=== PATIENT | female | born 1960 | race Caucasian/White ===

== ENCOUNTER 2022-05-27 18:06 | Inpatient (IN) | payer MEDICARE, MEDICAID ==
[2022-05-27] MEDS ORDERED: Ondansetron PF 4 MG/2 ML Vial IVP PRN (21:13)
[2022-05-27 21:42] LABS: #Eosinphils 0.5 thou/uL (0.0-0.7); #Lymphocytes 0.9 thou/uL (1.20-3.40); #Monocytes 0.4 thou/uL (0.11-0.59); #Neutrophils 5.6 thou/uL (1.40-6.50); %Basophils 0.4 % (0.0-1.0); %Eosinophils 6.4 % (0.0-10.0); %Lymphocytes 11.6 % (21.0-51.0); %Monocytes 4.9 % (0.0-10.0); %Neutrophils 76.6 % (42.0-75.0); Hemoglobin 10.1 g/dL (12.0-16.0); Mean Corpuscular Hemoglobin 27.9 pg (27.0-31.0); Mean Platelet Volume 7.1 fL (7.4-10.4); Platelet Count 199 thou/uL (130-400); RBC Distribution Width 14.9 % (11.5-14.5); Red Blood Cell (RBC) Count 3.62 mill/uL (4.20-5.40); White Blood Cell (WBC) Count 7.3 thou/uL (4.8-10.8)
[2022-05-27 22:01] LABS: Lactic Acid 0.5 mmol/L (0.5-2.2)
[2022-05-27 22:05] LABS: ALT (SGPT) 18 U/L (8-55); AST (SGOT) 20 U/L (5-34); Albumin 4.2 g/dL (3.4-4.8); Alkaline Phosphatase 114 U/L (40-110); Anion Gap 13 mmol/L (10-20); BUN (Urea Nitrogen) 31 mg/dL (9.8-20.1); Bilirubin, Total 0.4 mg/dL (0.2-1.2); Calc. Creatinine Clearance 0 mL/min (70-130); Calcium 9.2 mg/dL (7.8-10.44); Carbon Dioxide 26 mmol/L (23-31); Chloride 105 mmol/L (98-107); Estimated GFR 49; Globulin 3.6 g/dL (2.4-3.5); Glucose 121 mg/dL (80-115); Lipase 26 U/L (8-78); Potassium 4.1 mmol/L (3.5-5.1); Protein, Total 7.8 g/dL (5.8-8.1); Sodium 140 mmol/L (136-145)
[2022-05-27] MEDS: Lactated Ringer's 1,000 ML IV SCH (22:23)
[2022-05-27 22:47] VITALS: BMI 74.1
[2022-05-27] MEDS ORDERED: Acetaminophen 500 MG TAB PO PRN (22:55)
[2022-05-27] MEDS: Morphine 2 MG/ML VIAL SLOW IVP PRN (23:47)
[2022-05-28] MEDS: Morphine 2 MG/ML VIAL SLOW IVP PRN ×2 (05:11→09:05)
[2022-05-28] MEDS: Lactated Ringer's 1,000 ML IV SCH ×3 (05:11→23:40)
[2022-05-28 06:44] LABS: #Eosinphils 0.4 thou/uL (0.0-0.7); #Lymphocytes 0.5 thou/uL (1.20-3.40); #Monocytes 0.4 thou/uL (0.11-0.59); #Neutrophils 4.2 thou/uL (1.40-6.50); %Basophils 0.7 % (0.0-1.0); %Eosinophils 7.2 % (0.0-10.0); %Lymphocytes 8.7 % (21.0-51.0); %Monocytes 7.4 % (0.0-10.0); Hemoglobin 9.4 g/dL (12.0-16.0); Mean Corpuscular Hemoglobin 28.4 pg (27.0-31.0); Mean Corpuscular Volume 91.8 fL (78.0-98.0); Mean Platelet Volume 7.5 fL (7.4-10.4); Platelet Count 168 thou/uL (130-400); Red Blood Cell (RBC) Count 3.31 mill/uL (4.20-5.40); White Blood Cell (WBC) Count 5.5 thou/uL (4.8-10.8)
[2022-05-28 07:02] LABS: ALT (SGPT) 15 U/L (8-55); AST (SGOT) 19 U/L (5-34); Albumin 3.9 g/dL (3.4-4.8); Alkaline Phosphatase 98 U/L (40-110); Anion Gap 10 mmol/L (10-20); BUN (Urea Nitrogen) 28 mg/dL (9.8-20.1); Bilirubin, Total 0.4 mg/dL (0.2-1.2); Calc. Creatinine Clearance 173 mL/min (70-130); Calcium 8.8 mg/dL (7.8-10.44); Carbon Dioxide 29 mmol/L (23-31); Chloride 105 mmol/L (98-107); Estimated GFR 61; Globulin 3.4 g/dL (2.4-3.5); Glucose 116 mg/dL (80-115); Protein, Total 7.3 g/dL (5.8-8.1); Sodium 140 mmol/L (136-145)
[2022-05-28] MEDS: Famotidine/PF 20 mg/2ml Vial SLOW IVP SCH ×2 (08:56→21:14)
[2022-05-28] MEDS ORDERED: Apixaban 2.5 MG TAB PO SCH (09:00)
[2022-05-28] MEDS ORDERED: Non-Formulary Item 1 EACH (Tizanidine Hcl [Tizanidine Hcl] 4 MG Capsule) PO PRN (12:08)
[2022-05-28] MEDS ORDERED: Acetaminophen 500 MG TAB PO PRN (12:09)
[2022-05-28] MEDS ORDERED: Non-Formulary Item 1 EACH (Albuterol Sulfate [Proair Digihaler] 90 MCG Aer.Pw.Bas) IH PRN (12:09)
[2022-05-28] MEDS ORDERED: tiZANidine HCl 4 MG TAB PO PRN (12:41)
[2022-05-28] MEDS ORDERED: Albuterol Sulfate 2.5 mg/3 ml Neb NEB PRN (12:42)
[2022-05-28] MEDS ORDERED: Senokot S 8.6-50 MG TAB PO PRN (13:58)
[2022-05-28] MEDS ORDERED: MD-Gastroview 120 ML BOT ONE (14:22)
[2022-05-28] MEDS: Gabapentin 300 MG CAP PO SCH ×2 (15:46→21:13)
[2022-05-28] MEDS ORDERED: Nystatin Powder 15 GM BOT TOP SCH (21:00)
[2022-05-28] MEDS ORDERED: Senokot S 8.6-50 MG TAB PO SCH (21:00)
[2022-05-28] MEDS ORDERED: Non-Formulary Item 1 EACH (Amitriptyline Hcl [Elavil] 50 MG Tab) PO SCH (21:00)
[2022-05-28] MEDS: Pramipexole Di-HCl 0.25 MG TAB PO SCH (21:13)
[2022-05-28] MEDS: Apixaban 2.5 MG TAB PO SCH (21:14)
[2022-05-28] MEDS: Atorvastatin Calcium 40 MG TAB PO SCH (21:14)
[2022-05-28] MEDS: Amitriptyline HCl 25 MG TAB PO SCH (21:14)
[2022-05-28] MEDS: Nystatin Powder 15 GM BOT TOP SCH (21:15)
[2022-05-29 07:08] LABS: #Eosinphils 0.4 thou/uL (0.0-0.7); #Lymphocytes 0.5 thou/uL (1.20-3.40); #Monocytes 0.4 thou/uL (0.11-0.59); #Neutrophils 3.6 thou/uL (1.40-6.50); %Basophils 0.8 % (0.0-1.0); %Lymphocytes 10.5 % (21.0-51.0); %Monocytes 8.2 % (0.0-10.0); %Neutrophils 71.5 % (42.0-75.0); Hemoglobin 9.5 g/dL (12.0-16.0); Mean Corpuscular HGB CONC 32.9 g/dL (32.0-36.0); Mean Corpuscular Volume 91.2 fL (78.0-98.0); Mean Platelet Volume 7.4 fL (7.4-10.4); Platelet Count 170 thou/uL (130-400); RBC Distribution Width 14.8 % (11.5-14.5); Red Blood Cell (RBC) Count 3.15 mill/uL (4.20-5.40)
[2022-05-29 07:29] LABS: ALT (SGPT) 16 U/L (8-55); AST (SGOT) 19 U/L (5-34); Albumin 3.8 g/dL (3.4-4.8); Alkaline Phosphatase 107 U/L (40-110); Anion Gap 11 mmol/L (10-20); BUN (Urea Nitrogen) 14 mg/dL (9.8-20.1); Bilirubin, Total 0.5 mg/dL (0.2-1.2); Calc. Creatinine Clearance 207 mL/min (70-130); Calcium 8.8 mg/dL (7.8-10.44); Carbon Dioxide 26 mmol/L (23-31); Chloride 108 mmol/L (98-107); Estimated GFR 75; Globulin 3.2 g/dL (2.4-3.5); Glucose 115 mg/dL (80-115); Potassium 3.8 mmol/L (3.5-5.1); Sodium 141 mmol/L (136-145)
[2022-05-29] MEDS: Nystatin Powder 15 GM BOT TOP SCH ×2 (08:35→20:17)
[2022-05-29] MEDS: Penicillin V Potassium 250 MG TAB PO SCH (08:35)
[2022-05-29] MEDS: Apixaban 2.5 MG TAB PO SCH ×2 (08:35→20:14)
[2022-05-29] MEDS: Gabapentin 300 MG CAP PO SCH ×3 (08:35→20:16)
[2022-05-29] MEDS: Pramipexole Di-HCl 0.25 MG TAB PO SCH ×2 (08:36→20:14)
[2022-05-29] MEDS: Lactated Ringer's 1,000 ML IV SCH (08:36)
[2022-05-29] MEDS: Lisinopril 5 MG TAB PO SCH (08:36)
[2022-05-29] MEDS: Furosemide 40 MG TAB PO SCH (08:36)
[2022-05-29] MEDS: Polyethylene Glycol 3350 17 GM Packet PO SCH ×2 (08:36→12:30)
[2022-05-29] MEDS: Famotidine/PF 20 mg/2ml Vial SLOW IVP SCH ×2 (08:36→20:15)
[2022-05-29] MEDS: Atorvastatin Calcium 40 MG TAB PO SCH (20:15)
[2022-05-29] MEDS: Amitriptyline HCl 25 MG TAB PO SCH (20:16)
[2022-05-30] MEDS: Gabapentin 300 MG CAP PO SCH ×2 (08:49→16:06)
[2022-05-30] MEDS: Penicillin V Potassium 250 MG TAB PO SCH (08:49)
[2022-05-30] MEDS: Furosemide 40 MG TAB PO SCH (08:49)
[2022-05-30] MEDS: Polyethylene Glycol 3350 17 GM Packet PO SCH (08:49)
[2022-05-30] MEDS: Apixaban 2.5 MG TAB PO SCH (08:50)
[2022-05-30] MEDS: Pramipexole Di-HCl 0.25 MG TAB PO SCH (08:50)
[2022-05-30] MEDS: Lisinopril 5 MG TAB PO SCH (08:50)
[2022-05-30] MEDS: Famotidine/PF 20 mg/2ml Vial SLOW IVP SCH (08:51)
[2022-05-30] MEDS ORDERED: FLU VACC QS2022-23(6MOS UP)/PF 60 MCG/0.5 ML SYRINGE IM ONE (09:00)
[2022-05-30] MEDS ORDERED: guaiFENesin ER 600 MG TAB PO SCH (09:00)
[2022-05-30] MEDS: Nystatin Powder 15 GM BOT TOP SCH (09:08)
[2022-05-30] MEDS ORDERED: Lisinopril 5 MG TAB PO SCH (09:30)
[2022-05-30 11:05] LABS: Bilirubin Negative (Negative); Blood, Urine 3+ (Negative); Clarity Clear (Clear); Glucose, Urine (Dipstick) Normal (Negative); Ketone, Urine Negative (Negative); Leukocyte 500 Leu/uL (Negative); Nitrite Negative (Negative); Protein, Urine (Dipstick) Negative (Neg-Trace); RBC/HPF Greater than 50 HPF (0-3); Specific Gravity, Urine 1.009 (1.002-1.036); Squamous Epithelial None Seen HPF (0-3); Urobilinogen Normal mg/dL (Less than 2); WBC/HPF 21-50 HPF (0-3); pH, Urine 7.5 (5.0-9.0)
[2022-05-30 11:08] LABS: Bacteria/HPF Rare-Few HPF (None Seen)
[2022-05-30 11:09] LABS: Urine Culture Reflex Yes Yes
[2022-05-30 12:04] VITALS: TEMP 98.1
[2022-05-30 13:29] LABS: SARS-CoV-2 NAA Rapid Test Not Detected (NotDetected)
[2022-05-30 19:49] VITALS: BP 163/78
[2022-05-30] MEDS ORDERED: Ciprofloxacin 500 MG TAB PO SCH (20:00)
[2022-05-31] MEDS ORDERED: Lisinopril 10 MG TAB PO SCH (09:00)
== END 2022-05-30 17:34 | disposition swing bed (61) | DRG 392 ==
LOC: INTOOBSV 18:06 → T4-B 18:06 → OBSVTOIN 05-29 11:41
PROVIDERS: ADMIT Emergency Medicine; ATTEND Emergency Medicine
DX: K59.00 Constipation, unspecified (principal); N17.9 Acute kidney failure, unspecified; K43.6 Other and unspecified ventral hernia with obstruction, without gangrene; N30.00 Acute cystitis without hematuria; Z68.45 Body mass index [BMI] 70 or greater, adult; I25.10 Atherosclerotic heart disease of native coronary artery without angina pectoris; I50.9 Heart failure, unspecified; J44.9 Chronic obstructive pulmonary disease, unspecified; E66.01 Morbid (severe) obesity due to excess calories; F41.9 Anxiety disorder, unspecified; F32.A Depression, unspecified; K21.9 Gastro-esophageal reflux disease without esophagitis; E78.5 Hyperlipidemia, unspecified; G62.9 Polyneuropathy, unspecified; G47.33 Obstructive sleep apnea (adult) (pediatric); D64.9 Anemia, unspecified; G89.4 Chronic pain syndrome; J45.909 Unspecified asthma, uncomplicated; Z20.822 Contact with and (suspected) exposure to COVID-19; Z79.899 Other long term (current) drug therapy; Z79.01 Long term (current) use of anticoagulants; Z79.51 Long term (current) use of inhaled steroids; Z90.49 Acquired absence of other specified parts of digestive tract; Z90.710 Acquired absence of both cervix and uterus
CPT/HCPCS: 36415; 74250; 80053; 81001; 83605; 83690; 85025; 87077; 87086; 87186; 87324; 87449; 96361; 96374; 96375; 96376; 97139; G0378; J2270; J2405; J7120; Q9963; S0028; U0002

== ENCOUNTER 2023-07-21 19:30 | Inpatient (IN) | payer MEDICARE, MEDICAID ==
[2023-07-21] MEDS ORDERED: Ondansetron PF 4 MG/2 ML Vial ONE (19:56)
[2023-07-21] MEDS ORDERED: Acetaminophen 500 MG TAB ONE (19:56)
[2023-07-21 20:15] LABS: #Eosinphils 0.1 thou/uL (0.0-0.7); #Monocytes 0.8 thou/uL (0.11-0.59); %Basophils 0.1 % (0.0-1.0); %Eosinophils 1.1 % (0.0-10.0); %Lymphocytes 4.3 % (21.0-51.0); %Monocytes 8.3 % (0.0-10.0); %Neutrophils 85.2 % (42.0-75.0); Hematocrit 29.9 % (36.0-47.0); Hemoglobin 8.7 g/dL (12.0-16.0); Mean Corpuscular HGB CONC 29.1 g/dL (32.0-36.0); Mean Corpuscular Hemoglobin 24.6 pg (27.0-31.0); Mean Corpuscular Volume 84.5 fl (78.0-98.0); Mean Platelet Volume 8.8 fL (7.4-10.4); Platelet Count 177 10x3/uL (130-400); RBC Distribution Width 16.7 % (11.5-14.5); Red Blood Cell (RBC) Count 3.54 mill/uL (4.20-5.40); White Blood Cell (WBC) Count 9.4 10x3/uL (4.8-10.8)
[2023-07-21 20:27] LABS: INR-International Normal Ratio 1.2; PTT 33.8 sec (22.9-36.1); Prothrombin Time 15.5 sec (12.0-14.7)
[2023-07-21 20:49] LABS: Bacteria/HPF 2+ HPF (None Seen); Bilirubin Negative (Negative); Blood, Urine 2+ (Negative); CAUTI Indications for Culture Dysuria,urgency,freq; Clarity Turbid (Clear); Glucose, Urine (Dipstick) Normal (Negative); Ketone, Urine Negative (Negative); Leukocyte 500 Leu/uL (Negative); Nitrite Negative (Negative); Protein, Urine (Dipstick) 100 mg/dL (Neg-Trace); RBC/HPF 21-50 HPF (0-3); Renal Epithelial 0-3 HPF (None Seen); Specific Gravity, Urine 1.013 (1.002-1.036); Transitional Epithelial 0-3 HPF (None Seen); Urobilinogen Normal mg/dL (Less than 2); WBC/HPF Greater than 50 HPF (0-3); Yeast-Hyphae Rare HPF (None Seen)
[2023-07-21 20:50] LABS: Urine Culture Reflex Yes Yes
[2023-07-21 20:52] LABS: ALT (SGPT) 22 U/L (8-55); AST (SGOT) 19 U/L (5-34); Alkaline Phosphatase 137 U/L (40-110); Anion Gap 14 mmol/L (10-20); BUN (Urea Nitrogen) 30 mg/dL (9.8-20.1); Bilirubin, Total 0.7 mg/dL (0.2-1.2); Calc. Creatinine Clearance 0 mL/min (70-130); Calcium 9.3 mg/dL (7.8-10.44); Carbon Dioxide 25 mmol/L (23-31); Chloride 99 mmol/L (98-107); Estimated GFR 28; Globulin 3.6 g/dL (2.4-3.5); Glucose 205 mg/dL (80-115); Lipase 27 U/L (8-78); Potassium 5.3 mmol/L (3.5-5.1); Protein, Total 7.6 g/dL (5.8-8.1); Sodium 133 mmol/L (136-145)
[2023-07-21 21:11] LABS: SARS-CoV-2 NAA Rapid Test Not Detected (NotDetected)
[2023-07-21] MEDS ORDERED: Sodium Chloride 0.9% 100 ML ONE (21:52)
[2023-07-21] MEDS ORDERED: cefTRIAXone (ROCEPHIN) 2 GM VIAL ONE (21:52)
[2023-07-21] MEDS ORDERED: Ondansetron PF 4 MG/2 ML Vial IVP PRN (23:13)
[2023-07-21] MEDS ORDERED: Acetaminophen 650 MG Suppository PR PRN (23:13)
[2023-07-21] MEDS ORDERED: Ondansetron ODT 4 MG TAB PO PRN (23:13)
[2023-07-21] MEDS ORDERED: Vancomycin (BATCH) 1.5 GM in Premix 1 BAG IVPB SCH (23:30)
[2023-07-21 23:48] VITALS: BMI 66.6
[2023-07-22] MEDS: Cefepime 1 GM in Sodium Chloride 0.9% 100 ML IVPB SCH ×2 (00:24→13:32)
[2023-07-22] MEDS ORDERED: Vancomycin Dose by Levels Sliding Scale (Wt > 99) FS SCH (00:30)
[2023-07-22] MEDS ORDERED: Vancomycin (BATCH) 2 GM in Premix 1 BAG IVPB SCH (01:00)
[2023-07-22] MEDS ORDERED: Ipratropium/Albuterol 3 ML NEB NEB PRN (04:45)
[2023-07-22 05:01] LABS: #Eosinphils 0.1 thou/uL (0.0-0.7); #Monocytes 0.9 thou/uL (0.11-0.59); #Neutrophils 7.8 thou/uL (1.40-6.50); %Basophils 0.2 % (0.0-1.0); %Eosinophils 0.5 % (0.0-10.0); %Monocytes 9.2 % (0.0-10.0); %Neutrophils 83.8 % (42.0-75.0); Hemoglobin 7.9 g/dL (12.0-16.0); Mean Corpuscular HGB CONC 29.3 g/dL (32.0-36.0); Mean Corpuscular Hemoglobin 25.1 pg (27.0-31.0); Mean Corpuscular Volume 85.7 fl (78.0-98.0); Mean Platelet Volume 8.9 fL (7.4-10.4); Platelet Count 166 10x3/uL (130-400); RBC Distribution Width 16.7 % (11.5-14.5); Red Blood Cell (RBC) Count 3.15 mill/uL (4.20-5.40); White Blood Cell (WBC) Count 9.3 10x3/uL (4.8-10.8)
[2023-07-22 05:10] LABS: Hemoglobin A1c 6.4 % (4.0-6.0)
[2023-07-22] MEDS: Sodium Chloride 0.9% 1,000 ML IV SCH ×3 (05:17→20:22)
[2023-07-22 05:30] LABS: Anion Gap 13 mmol/L (10-20); BUN (Urea Nitrogen) 28 mg/dL (9.8-20.1); Calc. Creatinine Clearance 94 mL/min (70-130); Calcium 8.6 mg/dL (7.8-10.44); Carbon Dioxide 25 mmol/L (23-31); Chloride 100 mmol/L (98-107); Estimated GFR 33; Glucose 179 mg/dL (80-115); Potassium 5.1 mmol/L (3.5-5.1); Sodium 133 mmol/L (136-145)
[2023-07-22] MEDS: Acetaminophen 325 MG TAB PO PRN ×2 (09:58→20:19)
[2023-07-22] MEDS: Folic Acid 1 MG TAB PO SCH (09:58)
[2023-07-22] MEDS ORDERED: Sertraline 100 MG TAB PO SCH (10:30)
[2023-07-22] MEDS ORDERED: diphenhydrAMINE 50 MG/ML VIAL IVP SCH (15:00)
[2023-07-22] MEDS: Gabapentin 100 MG CAP PO SCH ×2 (15:31→20:20)
[2023-07-22] MEDS: Prochlorperazine Maleate 5 MG TAB PO PRN (17:56)
[2023-07-22] MEDS: Amitriptyline HCl 25 MG TAB PO SCH (20:19)
[2023-07-22] MEDS: Apixaban 2.5 MG TAB PO SCH (20:20)
[2023-07-22] MEDS: Pramipexole Di-HCl 0.25 MG TAB PO SCH (20:21)
[2023-07-22] MEDS: diphenhydrAMINE 25 MG CAP PO PRN (20:21)
[2023-07-23 00:26] LABS: Vancomycin, Random 10.8 ug/mL (See Comment)
[2023-07-23] MEDS: Cefepime 1 GM in Sodium Chloride 0.9% 100 ML IVPB SCH (00:36)
[2023-07-23] MEDS ORDERED: Vancomycin 1 GM in Premix 1 BAG IVPB SCH (01:30)
[2023-07-23] MEDS: Prochlorperazine Maleate 5 MG TAB PO PRN ×2 (01:52→23:31)
[2023-07-23] MEDS: Acetaminophen 325 MG TAB PO PRN ×2 (01:52→06:27)
[2023-07-23] MEDS: Sodium Chloride 0.9% 1,000 ML IV SCH (06:18)
[2023-07-23 06:35] LABS: #Eosinphils 0.1 thou/uL (0.0-0.7); #Monocytes 0.5 thou/uL (0.11-0.59); #Neutrophils 4.1 thou/uL (1.40-6.50); %Basophils 0.2 % (0.0-1.0); %Monocytes 10.4 % (0.0-10.0); Hematocrit 25.5 % (36.0-47.0); Hemoglobin 7.2 g/dL (12.0-16.0); Mean Corpuscular HGB CONC 28.2 g/dL (32.0-36.0); Mean Corpuscular Hemoglobin 24.5 pg (27.0-31.0); Mean Corpuscular Volume 86.7 fl (78.0-98.0); Platelet Count 129 10x3/uL (130-400); RBC Distribution Width 16.5 % (11.5-14.5); Red Blood Cell (RBC) Count 2.94 mill/uL (4.20-5.40); White Blood Cell (WBC) Count 5.1 10x3/uL (4.8-10.8)
[2023-07-23 07:00] LABS: Anion Gap 11 mmol/L (10-20); BUN (Urea Nitrogen) 24 mg/dL (9.8-20.1); Calc. Creatinine Clearance 98 mL/min (70-130); Calcium 8.4 mg/dL (7.8-10.44); Carbon Dioxide 25 mmol/L (23-31); Chloride 103 mmol/L (98-107); Estimated GFR 35; Glucose 148 mg/dL (80-115); Potassium 4.5 mmol/L (3.5-5.1); Sodium 134 mmol/L (136-145)
[2023-07-23] MEDS: Ascorbic Acid 500 mg Chewable Tablet PO SCH (07:46)
[2023-07-23] MEDS: Gabapentin 100 MG CAP PO SCH ×3 (07:46→20:18)
[2023-07-23] MEDS: Multivit, Therapeutic 1 TAB PO SCH (07:46)
[2023-07-23] MEDS: Cyanocobalamin (Vitamin B-12) 1,000 MCG TAB PO SCH (07:48)
[2023-07-23] MEDS: Furosemide 40 MG TAB PO SCH (07:48)
[2023-07-23] MEDS: Folic Acid 1 MG TAB PO SCH (07:48)
[2023-07-23] MEDS: Pramipexole Di-HCl 0.25 MG TAB PO SCH ×2 (07:49→20:17)
[2023-07-23] MEDS: Zinc Sulfate 220 MG CAP PO SCH (07:49)
[2023-07-23] MEDS: Sertraline 100 MG TAB PO SCH (07:49)
[2023-07-23] MEDS: Apixaban 2.5 MG TAB PO SCH ×2 (07:50→20:18)
[2023-07-23] MEDS ORDERED: Sertraline 100 MG TAB PO SCH (09:00)
[2023-07-23] MEDS ORDERED: Ferrous Sulfate 325 MG TAB PO SCH (09:15)
[2023-07-23] MEDS: cefTRIAXone\\ROCEPHIN 2 GM in Sodium Chloride 0.9% 100 ML IVPB SCH (13:38)
[2023-07-23] MEDS: Ferrous Sulfate 325 MG TAB PO SCH (16:42)
[2023-07-23] MEDS: Amitriptyline HCl 25 MG TAB PO SCH (20:17)
[2023-07-23] MEDS: Acetaminophen/Codeine 30-300mg Tablet PO PRN (20:20)
[2023-07-23] MEDS: diphenhydrAMINE 25 MG CAP PO PRN (20:20)
[2023-07-24 06:11] LABS: #Eosinphils 0.1 thou/uL (0.0-0.7); #Monocytes 0.7 thou/uL (0.11-0.59); #Neutrophils 4.3 thou/uL (1.40-6.50); %Basophils 0.2 % (0.0-1.0); %Eosinophils 2.1 % (0.0-10.0); %Lymphocytes 8.3 % (21.0-51.0); %Monocytes 12.9 % (0.0-10.0); %Neutrophils 75.6 % (42.0-75.0); Hematocrit 26.5 % (36.0-47.0); Hemoglobin 7.7 g/dL (12.0-16.0); Mean Corpuscular HGB CONC 29.1 g/dL (32.0-36.0); Mean Corpuscular Hemoglobin 25.1 pg (27.0-31.0); Mean Corpuscular Volume 86.3 fl (78.0-98.0); Mean Platelet Volume 9.4 fL (7.4-10.4); Platelet Count 142 10x3/uL (130-400); RBC Distribution Width 16.3 % (11.5-14.5); Red Blood Cell (RBC) Count 3.07 mill/uL (4.20-5.40); White Blood Cell (WBC) Count 5.6 10x3/uL (4.8-10.8)
[2023-07-24 06:31] LABS: Anion Gap 13 mmol/L (10-20); BUN (Urea Nitrogen) 21 mg/dL (9.8-20.1); Calc. Creatinine Clearance 106 mL/min (70-130); Calcium 8.8 mg/dL (7.8-10.44); Carbon Dioxide 24 mmol/L (23-31); Chloride 103 mmol/L (98-107); Estimated GFR 39; Glucose 148 mg/dL (80-115); Potassium 4.5 mmol/L (3.5-5.1); Sodium 135 mmol/L (136-145)
[2023-07-24] MEDS: Cyanocobalamin (Vitamin B-12) 1,000 MCG TAB PO SCH (09:02)
[2023-07-24] MEDS: Gabapentin 100 MG CAP PO SCH ×3 (09:02→20:57)
[2023-07-24] MEDS: Zinc Sulfate 220 MG CAP PO SCH (09:02)
[2023-07-24] MEDS: Pramipexole Di-HCl 0.25 MG TAB PO SCH ×2 (09:02→20:57)
[2023-07-24] MEDS: Sertraline 100 MG TAB PO SCH (09:02)
[2023-07-24] MEDS: Multivit, Therapeutic 1 TAB PO SCH (09:02)
[2023-07-24] MEDS: Ascorbic Acid 500 mg Chewable Tablet PO SCH (09:03)
[2023-07-24] MEDS: Furosemide 40 MG TAB PO SCH (09:03)
[2023-07-24] MEDS: Ferrous Sulfate 325 MG TAB PO SCH ×2 (09:03→15:52)
[2023-07-24] MEDS: Folic Acid 1 MG TAB PO SCH (09:03)
[2023-07-24] MEDS: Apixaban 2.5 MG TAB PO SCH ×2 (13:04→20:58)
[2023-07-24] MEDS: Acetaminophen/Codeine 30-300mg Tablet PO PRN ×2 (13:04→19:12)
[2023-07-24] MEDS: cefTRIAXone\\ROCEPHIN 2 GM in Sodium Chloride 0.9% 100 ML IVPB SCH (13:05)
[2023-07-24] MEDS: Prochlorperazine Maleate 5 MG TAB PO PRN (17:43)
[2023-07-24] MEDS: diphenhydrAMINE 25 MG CAP PO PRN (20:57)
[2023-07-24] MEDS: Amitriptyline HCl 25 MG TAB PO SCH (20:58)
[2023-07-25] MEDS: Prochlorperazine Maleate 5 MG TAB PO PRN ×2 (03:36→19:31)
[2023-07-25 05:41] LABS: #Eosinphils 0.2 thou/uL (0.0-0.7); #Monocytes 0.6 thou/uL (0.11-0.59); #Neutrophils 4.1 thou/uL (1.40-6.50); %Basophils 0.4 % (0.0-1.0); %Eosinophils 2.8 % (0.0-10.0); %Lymphocytes 8.9 % (21.0-51.0); %Monocytes 11.7 % (0.0-10.0); %Neutrophils 75.6 % (42.0-75.0); Hematocrit 25.2 % (36.0-47.0); Hemoglobin 7.2 g/dL (12.0-16.0); Mean Corpuscular HGB CONC 28.6 g/dL (32.0-36.0); Mean Corpuscular Hemoglobin 24.3 pg (27.0-31.0); Mean Corpuscular Volume 85.1 fl (78.0-98.0); Platelet Count 137 10x3/uL (130-400); RBC Distribution Width 16.2 % (11.5-14.5); Red Blood Cell (RBC) Count 2.96 mill/uL (4.20-5.40); White Blood Cell (WBC) Count 5.4 10x3/uL (4.8-10.8)
[2023-07-25 06:12] LABS: Anion Gap 13 mmol/L (10-20); BUN (Urea Nitrogen) 20 mg/dL (9.8-20.1); Calc. Creatinine Clearance 112 mL/min (70-130); Calcium 8.9 mg/dL (7.8-10.44); Carbon Dioxide 27 mmol/L (23-31); Chloride 100 mmol/L (98-107); Estimated GFR 41; Glucose 162 mg/dL (80-115); Potassium 4.5 mmol/L (3.5-5.1); Sodium 135 mmol/L (136-145)
[2023-07-25] MEDS: Cyanocobalamin (Vitamin B-12) 1,000 MCG TAB PO SCH (09:01)
[2023-07-25] MEDS: Furosemide 40 MG TAB PO SCH (09:01)
[2023-07-25] MEDS: Folic Acid 1 MG TAB PO SCH (09:01)
[2023-07-25] MEDS: Zinc Sulfate 220 MG CAP PO SCH (09:01)
[2023-07-25] MEDS: Pramipexole Di-HCl 0.25 MG TAB PO SCH (09:01)
[2023-07-25] MEDS: Sertraline 100 MG TAB PO SCH (09:01)
[2023-07-25] MEDS: Gabapentin 100 MG CAP PO SCH ×2 (09:01→14:25)
[2023-07-25] MEDS: Ascorbic Acid 500 mg Chewable Tablet PO SCH (09:01)
[2023-07-25] MEDS: Apixaban 2.5 MG TAB PO SCH (09:02)
[2023-07-25] MEDS: Ferrous Sulfate 325 MG TAB PO SCH ×2 (09:02→15:59)
[2023-07-25] MEDS: Multivit, Therapeutic 1 TAB PO SCH (09:02)
[2023-07-25] MEDS: Acetaminophen/Codeine 30-300mg Tablet PO PRN (14:26)
[2023-07-25] MEDS: cefTRIAXone\\ROCEPHIN 2 GM in Sodium Chloride 0.9% 100 ML IVPB SCH (14:26)
[2023-07-25 19:36] VITALS: BP 115/70; TEMP 98.4
== END 2023-07-25 20:33 | disposition home health service (06) | DRG 698 ==
LOC: ERS 19:30 → T4-B 21:52
PROVIDERS: ADMIT Family Medicine; ATTEND Family Medicine
PROC: 02HV33Z Insertion of Infusion Device into Superior Vena Cava, Percutaneous Approach (ICD-10-PCS; principal; 2023-07-24)
PROC: B5181ZA Fluoroscopy of Superior Vena Cava using Low Osmolar Contrast, Guidance (ICD-10-PCS; 2023-07-24)
PROC: B548ZZA Ultrasonography of Superior Vena Cava, Guidance (ICD-10-PCS; 2023-07-24)
DX: T83.511A Infection and inflammatory reaction due to indwelling urethral catheter, initial encounter (principal); A41.9 Sepsis, unspecified organism; R65.20 Severe sepsis without septic shock; N17.9 Acute kidney failure, unspecified; E87.1 Hypo-osmolality and hyponatremia; E66.01 Morbid (severe) obesity due to excess calories; N39.0 Urinary tract infection, site not specified; J44.9 Chronic obstructive pulmonary disease, unspecified; I11.0 Hypertensive heart disease with heart failure; I50.9 Heart failure, unspecified; E78.5 Hyperlipidemia, unspecified; E87.5 Hyperkalemia; R53.81 Other malaise; G47.33 Obstructive sleep apnea (adult) (pediatric); F41.9 Anxiety disorder, unspecified; G89.4 Chronic pain syndrome; J45.909 Unspecified asthma, uncomplicated; I10 Essential (primary) hypertension; D50.9 Iron deficiency anemia, unspecified; Z90.5 Acquired absence of kidney; Z99.81 Dependence on supplemental oxygen; Z79.899 Other long term (current) drug therapy; Z79.51 Long term (current) use of inhaled steroids; Z98.890 Other specified postprocedural states; Z11.52 Encounter for screening for COVID-19
CPT/HCPCS: 36415; 36416; 36569; 51702; 71045; 76770; 80048; 80053; 80202; 81001; 83036; 83605; 83690; 83735; 84484; 85025; 85610; 85730; 87040; 87077; 87086; 87149; 87186; 87804; 93005; 94760; 96361; 96365; 96375; 97139; C1751; J0692; J0696; J1200; J2405; J3370; J3370-JW; J3490; J7050; Q0164; U0002

== ENCOUNTER 2023-07-28 15:39 | Inpatient (IN) | payer MEDICARE, MEDICAID ==
[2023-07-28 16:45] LABS: #Eosinphils 0.3 thou/uL (0.0-0.7); #Monocytes 0.5 thou/uL (0.11-0.59); #Neutrophils 6.7 thou/uL (1.40-6.50); %Basophils 0.2 % (0.0-1.0); %Eosinophils 3.8 % (0.0-10.0); %Lymphocytes 11.7 % (21.0-51.0); %Monocytes 5.6 % (0.0-10.0); %Neutrophils 76.6 % (42.0-75.0); Hematocrit 27.4 % (36.0-47.0); Mean Corpuscular HGB CONC 29.2 g/dL (32.0-36.0); Mean Corpuscular Hemoglobin 24.9 pg (27.0-31.0); Mean Corpuscular Volume 85.4 fl (78.0-98.0); Mean Platelet Volume 9.5 fL (7.4-10.4); Platelet Count 251 10x3/uL (130-400); RBC Distribution Width 16.3 % (11.5-14.5); Red Blood Cell (RBC) Count 3.21 mill/uL (4.20-5.40); White Blood Cell (WBC) Count 8.8 10x3/uL (4.8-10.8)
[2023-07-28 17:24] LABS: ALT (SGPT) 25 U/L (8-55); AST (SGOT) 19 U/L (5-34); Albumin 3.7 g/dL (3.4-4.8); Alkaline Phosphatase 180 U/L (40-110); Anion Gap 16 mmol/L (10-20); BUN (Urea Nitrogen) 22 mg/dL (9.8-20.1); Bilirubin, Total 0.2 mg/dL (0.2-1.2); Calc. Creatinine Clearance 0 mL/min (70-130); Calcium 8.8 mg/dL (7.8-10.44); Carbon Dioxide 23 mmol/L (23-31); Chloride 106 mmol/L (98-107); Estimated GFR 37; Globulin 3.6 g/dL (2.4-3.5); Glucose 163 mg/dL (80-115); Potassium 4.1 mmol/L (3.5-5.1); Protein, Total 7.3 g/dL (5.8-8.1); Sodium 141 mmol/L (136-145)
[2023-07-28] MEDS ORDERED: cefTRIAXone (ROCEPHIN) 2 GM VIAL ONE (18:16)
[2023-07-28] MEDS ORDERED: Sodium Chloride 0.9% 100 ML ONE (18:17)
[2023-07-28] MEDS ORDERED: Acetaminophen 650 MG Suppository PR PRN (19:34)
[2023-07-28] MEDS ORDERED: Albuterol 200 PUFF (6.7GM INHALER) INH PRN (19:46)
[2023-07-28] MEDS ORDERED: diphenhydrAMINE 25 MG CAP PO PRN (19:48)
[2023-07-28] MEDS: Pramipexole Di-HCl 0.25 MG TAB PO SCH (23:27)
[2023-07-28] MEDS: Gabapentin 100 MG CAP PO SCH (23:27)
[2023-07-28] MEDS: Amitriptyline HCl 25 MG TAB PO SCH (23:27)
[2023-07-29 00:03] VITALS: BMI 73.3
[2023-07-29] MEDS: Heparin 10,000 UNITS/ 10 ML VIAL SLOW IVP SCH ×2 (03:15→09:54)
[2023-07-29] MEDS: Heparin 25,000 units/D5W 500 ML IV SCH ×3 (03:16→23:10)
[2023-07-29 05:40] LABS: #Eosinphils 0.4 thou/uL (0.0-0.7); #Monocytes 0.6 thou/uL (0.11-0.59); #Neutrophils 6.7 thou/uL (1.40-6.50); %Basophils 0.3 % (0.0-1.0); %Eosinophils 4.3 % (0.0-10.0); %Lymphocytes 14.7 % (21.0-51.0); %Monocytes 6.1 % (0.0-10.0); %Neutrophils 71.1 % (42.0-75.0); Mean Corpuscular HGB CONC 28.6 g/dL (32.0-36.0); Mean Corpuscular Hemoglobin 24.5 pg (27.0-31.0); Mean Corpuscular Volume 85.9 fl (78.0-98.0); Mean Platelet Volume 9.1 fL (7.4-10.4); Platelet Count 264 10x3/uL (130-400); RBC Distribution Width 16.5 % (11.5-14.5); Red Blood Cell (RBC) Count 3.26 mill/uL (4.20-5.40); White Blood Cell (WBC) Count 9.5 10x3/uL (4.8-10.8)
[2023-07-29 06:06] LABS: CellaVision Operator ID lab.abc; Platelet Adequacy Comment Platelets Normal; Polychromasia SLIGHT = 2-3 cells HPF (0-2); Smudge Cells 16.8 %
[2023-07-29 06:08] LABS: ALT (SGPT) 23 U/L (8-55); AST (SGOT) 17 U/L (5-34); Albumin 3.5 g/dL (3.4-4.8); Alkaline Phosphatase 166 U/L (40-110); Anion Gap 14 mmol/L (10-20); BUN (Urea Nitrogen) 21 mg/dL (9.8-20.1); Bilirubin, Total 0.2 mg/dL (0.2-1.2); Calc. Creatinine Clearance 128 mL/min (70-130); Calcium 8.9 mg/dL (7.8-10.44); Carbon Dioxide 25 mmol/L (23-31); Chloride 103 mmol/L (98-107); Estimated GFR 40; Globulin 3.8 g/dL (2.4-3.5); Glucose 148 mg/dL (80-115); Potassium 4.4 mmol/L (3.5-5.1); Protein, Total 7.3 g/dL (5.8-8.1); Sodium 138 mmol/L (136-145)
[2023-07-29] MEDS: Zinc Sulfate 220 MG CAP PO SCH (08:20)
[2023-07-29] MEDS: Multivit, Therapeutic 1 TAB PO SCH (08:21)
[2023-07-29] MEDS: Gabapentin 100 MG CAP PO SCH ×3 (08:21→19:38)
[2023-07-29] MEDS: Folic Acid 1 MG TAB PO SCH (08:21)
[2023-07-29] MEDS: Sertraline 100 MG TAB PO SCH (08:21)
[2023-07-29] MEDS: Ascorbic Acid 500 mg Chewable Tablet PO SCH (08:21)
[2023-07-29] MEDS: Ferrous Sulfate 325 MG TAB PO SCH ×2 (08:21→16:43)
[2023-07-29] MEDS: Furosemide 40 MG TAB PO SCH (08:21)
[2023-07-29] MEDS: Cyanocobalamin (Vitamin B-12) 1,000 MCG TAB PO SCH (08:22)
[2023-07-29] MEDS: Pramipexole Di-HCl 0.25 MG TAB PO SCH ×2 (08:22→19:38)
[2023-07-29] MEDS: Acetaminophen 325 MG TAB PO PRN ×4 (08:26→23:14)
[2023-07-29] MEDS ORDERED: Ciprofloxacin 500 MG TAB PO SCH (13:15)
[2023-07-29] MEDS ORDERED: cefTRIAXone (ROCEPHIN) 2 GM VIAL IVPB SCH (14:00)
[2023-07-29] MEDS: Ciprofloxacin 500 MG TAB PO SCH (19:38)
[2023-07-29] MEDS: Amitriptyline HCl 25 MG TAB PO SCH (19:38)
[2023-07-30] MEDS: Ciprofloxacin 500 MG TAB PO SCH (05:38)
[2023-07-30 07:11] LABS: #Eosinphils 0.3 thou/uL (0.0-0.7); #Monocytes 0.4 thou/uL (0.11-0.59); #Neutrophils 5.3 thou/uL (1.40-6.50); %Basophils 0.4 % (0.0-1.0); %Eosinophils 3.8 % (0.0-10.0); %Lymphocytes 11.6 % (21.0-51.0); %Monocytes 5.2 % (0.0-10.0); Hematocrit 30.7 % (36.0-47.0); Hemoglobin 8.7 g/dL (12.0-16.0); Mean Corpuscular HGB CONC 28.3 g/dL (32.0-36.0); Mean Corpuscular Hemoglobin 24.9 pg (27.0-31.0); Mean Corpuscular Volume 87.7 fl (78.0-98.0); Mean Platelet Volume 9.5 fL (7.4-10.4); Platelet Count 269 10x3/uL (130-400); RBC Distribution Width 16.9 % (11.5-14.5); White Blood Cell (WBC) Count 7.1 10x3/uL (4.8-10.8)
[2023-07-30 07:31] LABS: Anion Gap 15 mmol/L (10-20); BUN (Urea Nitrogen) 18 mg/dL (9.8-20.1); Calc. Creatinine Clearance 140 mL/min (70-130); Carbon Dioxide 24 mmol/L (23-31); Chloride 103 mmol/L (98-107); Estimated GFR 45; Glucose 148 mg/dL (80-115); Potassium 4.4 mmol/L (3.5-5.1); Sodium 138 mmol/L (136-145)
[2023-07-30 08:21] LABS: CellaVision Operator ID LAB.GE; Hypochromia SLIGHT = 6-15 cells HPF (0-5); Platelet Adequacy Comment Platelets Normal; Polychromasia SLIGHT = 2-3 cells HPF (0-2)
[2023-07-30] MEDS: Ferrous Sulfate 325 MG TAB PO SCH (08:49)
[2023-07-30] MEDS: Folic Acid 1 MG TAB PO SCH (08:49)
[2023-07-30] MEDS: Ascorbic Acid 500 mg Chewable Tablet PO SCH (08:49)
[2023-07-30] MEDS: Cyanocobalamin (Vitamin B-12) 1,000 MCG TAB PO SCH (08:49)
[2023-07-30] MEDS: Zinc Sulfate 220 MG CAP PO SCH (08:49)
[2023-07-30] MEDS: Pramipexole Di-HCl 0.25 MG TAB PO SCH (08:49)
[2023-07-30] MEDS: Multivit, Therapeutic 1 TAB PO SCH (08:49)
[2023-07-30] MEDS: Furosemide 40 MG TAB PO SCH (08:49)
[2023-07-30] MEDS: Sertraline 100 MG TAB PO SCH (08:49)
[2023-07-30] MEDS: Gabapentin 100 MG CAP PO SCH ×2 (08:50→16:10)
[2023-07-30] MEDS: Heparin 25,000 units/D5W 500 ML IV SCH (08:55)
[2023-07-30] MEDS ORDERED: Apixaban 5 MG TAB PO SCH ×2 (12:00→21:00)
[2023-07-30 12:37] VITALS: BP 149/84; TEMP 97.7
== END 2023-07-30 16:00 | disposition home or self-care (01) | DRG 315 ==
LOC: SUATTDRO 15:39 → ERS 15:39 → SJJU 18:54
PROVIDERS: ADMIT Family Medicine; ATTEND Family Medicine
PROC: 5A09357 Assistance with Respiratory Ventilation, Less than 24 Consecutive Hours, Continuous Positive Airway Pressure (ICD-10-PCS; principal; 2023-07-29)
DX: T82.594A Other mechanical complication of infusion catheter, initial encounter (principal); I82.622 Acute embolism and thrombosis of deep veins of left upper extremity; R78.81 Bacteremia; N39.0 Urinary tract infection, site not specified; N17.9 Acute kidney failure, unspecified; I50.9 Heart failure, unspecified; Z90.710 Acquired absence of both cervix and uterus; Z90.49 Acquired absence of other specified parts of digestive tract; F41.9 Anxiety disorder, unspecified; F32.A Depression, unspecified; J44.9 Chronic obstructive pulmonary disease, unspecified; Z79.899 Other long term (current) drug therapy; D64.9 Anemia, unspecified; G47.33 Obstructive sleep apnea (adult) (pediatric); I88.9 Nonspecific lymphadenitis, unspecified; G89.4 Chronic pain syndrome; E66.01 Morbid (severe) obesity due to excess calories; I25.10 Atherosclerotic heart disease of native coronary artery without angina pectoris
CPT/HCPCS: 36415; 36416; 71045; 80048; 80053; 85025; 85730; 87040; J0696; J1644; J1650; J3490

== ENCOUNTER 2023-09-29 23:51 | Inpatient (IN) | payer MEDICARE, MEDICAID ==
[2023-09-30 00:45] LABS: #Eosinphils 0.4 thou/uL (0.0-0.7); #Monocytes 0.4 thou/uL (0.11-0.59); #Neutrophils 6.3 thou/uL (1.40-6.50); %Basophils 0.5 % (0.0-1.0); %Eosinophils 4.6 % (0.0-10.0); %Lymphocytes 6.4 % (21.0-51.0); %Monocytes 4.8 % (0.0-10.0); %Neutrophils 82.8 % (42.0-75.0); Hematocrit 30.3 % (36.0-47.0); Hemoglobin 8.8 g/dL (12.0-16.0); Mean Corpuscular Hemoglobin 24.7 pg (27.0-31.0); Mean Corpuscular Volume 85.1 fl (78.0-98.0); Mean Platelet Volume 9.2 fL (7.4-10.4); Platelet Count 230 10x3/uL (130-400); RBC Distribution Width 17.2 % (11.5-14.5); Red Blood Cell (RBC) Count 3.56 mill/uL (4.20-5.40); White Blood Cell (WBC) Count 7.7 10x3/uL (4.8-10.8)
[2023-09-30 01:04] LABS: Bacteria/HPF 3+ HPF (None Seen); Bilirubin Negative (Negative); Blood, Urine Negative (Negative); CAUTI Indications for Culture Dysuria,urgency,freq; Clarity Turbid (Clear); Glucose, Urine (Dipstick) Normal (Negative); Ketone, Urine Negative (Negative); Leukocyte 500 Leu/uL (Negative); Nitrite 2+ (Negative); Protein, Urine (Dipstick) 70 mg/dL (Neg-Trace); RBC/HPF 0-3 HPF (0-3); Specific Gravity, Urine 1.015 (1.002-1.036); Squamous Epithelial 0-3 HPF (0-3); Urobilinogen Normal mg/dL (Less than 2); WBC/HPF 21-50 HPF (0-3); pH, Urine 5.5 (5.0-9.0)
[2023-09-30 01:08] LABS: ALT (SGPT) 26 U/L (8-55); AST (SGOT) 28 U/L (5-34); Albumin 3.9 g/dL (3.4-4.8); Alkaline Phosphatase 138 U/L (40-110); Anion Gap 14 mmol/L (10-20); BUN (Urea Nitrogen) 20 mg/dL (9.8-20.1); Bilirubin, Total 0.4 mg/dL (0.2-1.2); Calc. Creatinine Clearance 0 mL/min (70-130); Calcium 8.9 mg/dL (7.8-10.44); Carbon Dioxide 26 mmol/L (23-31); Chloride 100 mmol/L (98-107); Estimated GFR 37; Globulin 3.9 g/dL (2.4-3.5); Glucose 174 mg/dL (80-115); Lipase 14 U/L (8-78); Magnesium 2.2 mg/dL (1.6-2.6); Potassium 3.6 mmol/L (3.5-5.1); Protein, Total 7.8 g/dL (5.8-8.1); Sodium 136 mmol/L (136-145)
[2023-09-30 01:11] LABS: Troponin I Less than 0.010 ng/mL (< 0.028)
[2023-09-30 01:16] LABS: Urine Culture Reflex Yes Yes
[2023-09-30] MEDS ORDERED: Sodium Chloride 0.9% 100 ML ONE (02:33)
[2023-09-30] MEDS ORDERED: cefTRIAXone (ROCEPHIN) 1 GM VIAL ONE (02:33)
[2023-09-30 02:54] LABS: SARS-CoV-2 NAA Rapid Test Not Detected (NotDetected)
[2023-09-30] MEDS ORDERED: Benzonatate 100 MG CAP PO PRN (03:46)
[2023-09-30] MEDS ORDERED: Albuterol 2.5 MG (3 mL) NEB NEB PRN (03:51)
[2023-09-30] MEDS ORDERED: Furosemide 40 MG (4 mL) VIAL ONE (04:19)
[2023-09-30] MEDS: Furosemide 40 MG (4 mL) VIAL SLOW IVP SCH ×2 (04:25→10:26)
[2023-09-30] MEDS ORDERED: Acetaminophen/Codeine 30-300mg Tablet ONE (06:21)
[2023-09-30] MEDS: Acetaminophen/Codeine 30-300mg Tablet PO SCH (06:30)
[2023-09-30] MEDS ORDERED: Folic Acid 1 MG TAB ONE (08:51)
[2023-09-30] MEDS ORDERED: Gabapentin 100 MG CAP ONE (08:52)
[2023-09-30] MEDS ORDERED: Apixaban 5 MG TAB ONE (08:52)
[2023-09-30] MEDS ORDERED: Multivit, Therapeutic 1 TAB ONE (08:52)
[2023-09-30] MEDS: Gabapentin 100 MG CAP PO SCH (08:53)
[2023-09-30] MEDS: Apixaban 5 MG TAB PO SCH (08:53)
[2023-09-30] MEDS: Folic Acid 1 MG TAB PO SCH (08:53)
[2023-09-30] MEDS: Multivit, Therapeutic 1 TAB PO SCH (08:53)
[2023-09-30] MEDS: Ferrous Sulfate 325 MG TAB PO SCH (10:25)
[2023-09-30] MEDS: Cyanocobalamin (Vitamin B-12) 1,000 MCG TAB PO SCH (10:25)
[2023-09-30] MEDS: Sertraline 100 MG TAB PO SCH (10:25)
[2023-09-30] MEDS: Zinc Sulfate 220 MG CAP PO SCH (10:25)
[2023-09-30] MEDS: Pramipexole Di-HCl 0.25 MG TAB PO SCH (10:25)
[2023-09-30] MEDS: Ascorbic Acid 500 mg Chewable Tablet PO SCH (10:25)
[2023-09-30] MEDS: Polyethylene Glycol 3350 17 GM Packet PO SCH (17:37)
[2023-09-30] MEDS: Nystatin Powder 15 GM BOT TOP PRN (21:22)
[2023-09-30] MEDS: cefTRIAXone\\ROCEPHIN 2 GM in Sodium Chloride 0.9% 100 ML IVPB SCH (21:22)
[2023-09-30] MEDS: Amitriptyline HCl 25 MG TAB PO SCH (21:24)
[2023-10-01 04:21] LABS: #Eosinphils 0.4 thou/uL (0.0-0.7); #Monocytes 0.5 thou/uL (0.11-0.59); #Neutrophils 5.6 thou/uL (1.40-6.50); %Basophils 0.4 % (0.0-1.0); %Lymphocytes 8.9 % (21.0-51.0); %Monocytes 6.4 % (0.0-10.0); %Neutrophils 77.5 % (42.0-75.0); Hematocrit 29.5 % (36.0-47.0); Hemoglobin 8.4 g/dL (12.0-16.0); Mean Corpuscular HGB CONC 28.5 g/dL (32.0-36.0); Mean Corpuscular Hemoglobin 24.7 pg (27.0-31.0); Mean Corpuscular Volume 86.8 fl (78.0-98.0); Mean Platelet Volume 9.2 fL (7.4-10.4); Platelet Count 226 10x3/uL (130-400); RBC Distribution Width 17.5 % (11.5-14.5); White Blood Cell (WBC) Count 7.2 10x3/uL (4.8-10.8)
[2023-10-01 04:46] LABS: ALT (SGPT) 25 U/L (8-55); AST (SGOT) 28 U/L (5-34); Albumin 3.7 g/dL (3.4-4.8); Alkaline Phosphatase 123 U/L (40-110); Anion Gap 13 mmol/L (10-20); BUN (Urea Nitrogen) 18 mg/dL (9.8-20.1); Bilirubin, Total 0.3 mg/dL (0.2-1.2); Calc. Creatinine Clearance 154 mL/min (70-130); Calcium 8.8 mg/dL (7.8-10.44); Carbon Dioxide 27 mmol/L (23-31); Chloride 102 mmol/L (98-107); Estimated GFR 42; Globulin 3.8 g/dL (2.4-3.5); Glucose 147 mg/dL (80-115); Potassium 3.7 mmol/L (3.5-5.1); Protein, Total 7.5 g/dL (5.8-8.1); Sodium 138 mmol/L (136-145)
[2023-10-01] MEDS: hydrALAZINE 20 MG/ML VIAL SLOW IVP PRN (05:04)
[2023-10-01] MEDS: Furosemide 40 MG (4 mL) VIAL SLOW IVP SCH ×2 (05:09→14:30)
[2023-10-01] MEDS: Polyethylene Glycol 3350 17 GM Packet PO SCH (09:33)
[2023-10-01] MEDS: cefTRIAXone\\ROCEPHIN 1 GM in Sodium Chloride 0.9% 100 ML IVPB SCH (21:34)
[2023-10-01] MEDS: Acetaminophen/Codeine 30-300mg Tablet PO PRN (21:35)
[2023-10-02 04:31] LABS: #Eosinphils 0.4 thou/uL (0.0-0.7); #Monocytes 0.5 thou/uL (0.11-0.59); #Neutrophils 4.3 thou/uL (1.40-6.50); %Basophils 0.3 % (0.0-1.0); %Eosinophils 6.6 % (0.0-10.0); %Lymphocytes 11.6 % (21.0-51.0); %Monocytes 8.8 % (0.0-10.0); %Neutrophils 71.7 % (42.0-75.0); Hematocrit 29.5 % (36.0-47.0); Hemoglobin 8.4 g/dL (12.0-16.0); Mean Corpuscular HGB CONC 28.5 g/dL (32.0-36.0); Mean Corpuscular Hemoglobin 24.4 pg (27.0-31.0); Mean Corpuscular Volume 85.8 fl (78.0-98.0); Mean Platelet Volume 9.4 fL (7.4-10.4); Platelet Count 196 10x3/uL (130-400); RBC Distribution Width 17.4 % (11.5-14.5); Red Blood Cell (RBC) Count 3.44 mill/uL (4.20-5.40); White Blood Cell (WBC) Count 5.9 10x3/uL (4.8-10.8)
[2023-10-02 04:58] LABS: ALT (SGPT) 24 U/L (8-55); AST (SGOT) 25 U/L (5-34); Albumin 3.4 g/dL (3.4-4.8); Alkaline Phosphatase 118 U/L (40-110); Anion Gap 9 mmol/L (10-20); BUN (Urea Nitrogen) 16 mg/dL (9.8-20.1); Bilirubin, Total 0.3 mg/dL (0.2-1.2); Calc. Creatinine Clearance 160 mL/min (70-130); Calcium 8.8 mg/dL (7.8-10.44); Carbon Dioxide 32 mmol/L (23-31); Chloride 102 mmol/L (98-107); Estimated GFR 44; Globulin 3.4 g/dL (2.4-3.5); Glucose 139 mg/dL (80-115); Potassium 3.8 mmol/L (3.5-5.1); Protein, Total 6.8 g/dL (5.8-8.1); Sodium 139 mmol/L (136-145)
[2023-10-02 05:16] LABS: Anisocytosis SLIGHT = 6-15 cells HPF (0-5); CellaVision Operator ID lab.sh2; Hypochromia SLIGHT = 6-15 cells HPF (0-5); Platelet Adequacy Comment Platelets Normal; Polychromasia MODERATE = 3-4 cells HPF (0-2)
[2023-10-02] MEDS ORDERED: Aquaphor 10 GM TUBE TOP PRN (07:37)
[2023-10-02 08:09] LABS: Magnesium 2.3 mg/dL (1.6-2.6)
[2023-10-02] MEDS: Cyclobenzaprine 10 MG TAB PO SCH (09:35)
[2023-10-02] MEDS: Losartan 25 MG TAB PO SCH (09:37)
[2023-10-03] MEDS: Cyclobenzaprine 10 MG TAB PO SCH (00:32)
[2023-10-03 06:56] LABS: #Eosinphils 0.4 thou/uL (0.0-0.7); #Monocytes 0.5 thou/uL (0.11-0.59); #Neutrophils 5.1 thou/uL (1.40-6.50); %Basophils 0.5 % (0.0-1.0); %Eosinophils 5.6 % (0.0-10.0); %Lymphocytes 8.3 % (21.0-51.0); %Neutrophils 76.7 % (42.0-75.0); Hematocrit 27.4 % (36.0-47.0); Mean Corpuscular HGB CONC 29.2 g/dL (32.0-36.0); Mean Corpuscular Hemoglobin 25.6 pg (27.0-31.0); Mean Corpuscular Volume 87.5 fl (78.0-98.0); Mean Platelet Volume 9.2 fL (7.4-10.4); Platelet Count 195 10x3/uL (130-400); RBC Distribution Width 17.2 % (11.5-14.5); Red Blood Cell (RBC) Count 3.13 mill/uL (4.20-5.40); White Blood Cell (WBC) Count 6.6 10x3/uL (4.8-10.8)
[2023-10-03 07:49] LABS: ALT (SGPT) 24 U/L (8-55); AST (SGOT) 27 U/L (5-34); Albumin 3.6 g/dL (3.4-4.8); Alkaline Phosphatase 123 U/L (40-110); Anion Gap 13 mmol/L (10-20); BUN (Urea Nitrogen) 14 mg/dL (9.8-20.1); Bilirubin, Total 0.4 mg/dL (0.2-1.2); Calc. Creatinine Clearance 160 mL/min (70-130); Calcium 8.9 mg/dL (7.8-10.44); Carbon Dioxide 31 mmol/L (23-31); Chloride 98 mmol/L (98-107); Estimated GFR 45; Globulin 3.5 g/dL (2.4-3.5); Glucose 146 mg/dL (80-115); Potassium 3.7 mmol/L (3.5-5.1); Protein, Total 7.1 g/dL (5.8-8.1); Sodium 138 mmol/L (136-145)
[2023-10-03] MEDS ORDERED: Ipratropium/Albuterol 3 ML NEB NEB SCH (08:15)
[2023-10-03] MEDS: Losartan 25 MG TAB PO SCH (09:45)
[2023-10-03] MEDS: diphenhydrAMINE 25 MG CAP PO PRN (14:02)
[2023-10-03] MEDS: Ipratropium/Albuterol 3 ML NEB NEB PRN (20:41)
[2023-10-03] MEDS: Cyclobenzaprine 10 MG TAB PO PRN (21:52)
[2023-10-04] MEDS: Fluticasone Propionate Nasal Spray 16 gm Bottle NASAL SCH (09:58)
[2023-10-04 10:28] LABS: SARS-CoV-2 NAA Rapid Test Not Detected (NotDetected)
[2023-10-04 11:31] LABS: #Eosinphils 0.4 thou/uL (0.0-0.7); #Monocytes 0.5 thou/uL (0.11-0.59); #Neutrophils 5.2 thou/uL (1.40-6.50); %Basophils 0.3 % (0.0-1.0); %Eosinophils 5.4 % (0.0-10.0); %Lymphocytes 9.5 % (21.0-51.0); %Monocytes 7.7 % (0.0-10.0); %Neutrophils 75.9 % (42.0-75.0); Hematocrit 29.1 % (36.0-47.0); Hemoglobin 8.3 g/dL (12.0-16.0); Mean Corpuscular HGB CONC 28.5 g/dL (32.0-36.0); Mean Corpuscular Hemoglobin 24.3 pg (27.0-31.0); Mean Corpuscular Volume 85.1 fl (78.0-98.0); Mean Platelet Volume 8.8 fL (7.4-10.4); Platelet Count 212 10x3/uL (130-400); RBC Distribution Width 17.1 % (11.5-14.5); Red Blood Cell (RBC) Count 3.42 mill/uL (4.20-5.40); White Blood Cell (WBC) Count 6.8 10x3/uL (4.8-10.8)
[2023-10-04 11:54] LABS: ALT (SGPT) 24 U/L (8-55); AST (SGOT) 25 U/L (5-34); Albumin 3.6 g/dL (3.4-4.8); Alkaline Phosphatase 120 U/L (40-110); Anion Gap 12 mmol/L (10-20); BUN (Urea Nitrogen) 15 mg/dL (9.8-20.1); Bilirubin, Total 0.3 mg/dL (0.2-1.2); Calc. Creatinine Clearance 142 mL/min (70-130); Calcium 9.1 mg/dL (7.8-10.44); Carbon Dioxide 34 mmol/L (23-31); Chloride 97 mmol/L (98-107); Estimated GFR 42; Globulin 3.6 g/dL (2.4-3.5); Glucose 147 mg/dL (80-115); Potassium 3.8 mmol/L (3.5-5.1); Protein, Total 7.2 g/dL (5.8-8.1); Sodium 139 mmol/L (136-145)
[2023-10-04 12:05] LABS: CellaVision Operator ID LAB.GE; Hypochromia SLIGHT = 6-15 cells HPF (0-5); Platelet Adequacy Comment Platelets Normal; Polychromasia SLIGHT = 2-3 cells HPF (0-2)
[2023-10-04] MEDS: Cyclobenzaprine 10 MG TAB PO SCH (20:37)
[2023-10-04] MEDS: Senokot S 8.6-50 MG TAB PO SCH (20:38)
[2023-10-04] MEDS: Melatonin 3 MG TAB PO SCH (20:38)
[2023-10-05 04:54] LABS: #Eosinphils 0.4 thou/uL (0.0-0.7); #Monocytes 0.5 thou/uL (0.11-0.59); #Neutrophils 5.5 thou/uL (1.40-6.50); %Basophils 0.3 % (0.0-1.0); %Eosinophils 6.1 % (0.0-10.0); %Lymphocytes 10.4 % (21.0-51.0); %Monocytes 6.2 % (0.0-10.0); Hematocrit 31.6 % (36.0-47.0); Hemoglobin 8.8 g/dL (12.0-16.0); Mean Corpuscular HGB CONC 27.8 g/dL (32.0-36.0); Mean Corpuscular Volume 86.3 fl (78.0-98.0); Mean Platelet Volume 8.6 fL (7.4-10.4); Platelet Count 208 10x3/uL (130-400); RBC Distribution Width 17.1 % (11.5-14.5); Red Blood Cell (RBC) Count 3.66 mill/uL (4.20-5.40); White Blood Cell (WBC) Count 7.2 10x3/uL (4.8-10.8)
[2023-10-05 05:13] LABS: ALT (SGPT) 22 U/L (8-55); AST (SGOT) 22 U/L (5-34); Albumin 3.7 g/dL (3.4-4.8); Alkaline Phosphatase 121 U/L (40-110); Anion Gap 11 mmol/L (10-20); BUN (Urea Nitrogen) 18 mg/dL (9.8-20.1); Bilirubin, Total 0.3 mg/dL (0.2-1.2); Calc. Creatinine Clearance 128 mL/min (70-130); Calcium 9.2 mg/dL (7.8-10.44); Carbon Dioxide 34 mmol/L (23-31); Chloride 97 mmol/L (98-107); Estimated GFR 37; Globulin 3.7 g/dL (2.4-3.5); Glucose 152 mg/dL (80-115); Potassium 3.9 mmol/L (3.5-5.1); Protein, Total 7.4 g/dL (5.8-8.1); Sodium 138 mmol/L (136-145)
[2023-10-05] MEDS: Fluticasone Propionate Nasal Spray 16 gm Bottle NASAL SCH (08:41)
[2023-10-05] MEDS: Furosemide 40 MG TAB PO SCH (16:03)
[2023-10-06 04:48] LABS: #Eosinphils 0.5 thou/uL (0.0-0.7); #Monocytes 0.4 thou/uL (0.11-0.59); #Neutrophils 6.1 thou/uL (1.40-6.50); %Basophils 0.4 % (0.0-1.0); %Eosinophils 6.5 % (0.0-10.0); %Lymphocytes 9.4 % (21.0-51.0); %Monocytes 4.7 % (0.0-10.0); Hematocrit 31.8 % (36.0-47.0); Mean Corpuscular HGB CONC 28.3 g/dL (32.0-36.0); Mean Corpuscular Hemoglobin 24.7 pg (27.0-31.0); Mean Corpuscular Volume 87.4 fl (78.0-98.0); Platelet Count 212 10x3/uL (130-400); RBC Distribution Width 17.1 % (11.5-14.5); Red Blood Cell (RBC) Count 3.64 mill/uL (4.20-5.40); White Blood Cell (WBC) Count 7.8 10x3/uL (4.8-10.8)
[2023-10-06 05:18] LABS: Anion Gap 15 mmol/L (10-20); BUN (Urea Nitrogen) 20 mg/dL (9.8-20.1); Calc. Creatinine Clearance 140 mL/min (70-130); Carbon Dioxide 30 mmol/L (23-31); Chloride 96 mmol/L (98-107); Potassium 3.7 mmol/L (3.5-5.1); Sodium 137 mmol/L (136-145)
[2023-10-06 05:19] LABS: ALT (SGPT) 21 U/L (8-55); AST (SGOT) 20 U/L (5-34); Albumin 3.8 g/dL (3.4-4.8); Alkaline Phosphatase 119 U/L (40-110); Bilirubin, Total 0.4 mg/dL (0.2-1.2); Calcium 9.4 mg/dL (7.8-10.44); Estimated GFR 42; Globulin 3.7 g/dL (2.4-3.5); Glucose 146 mg/dL (80-115); Protein, Total 7.5 g/dL (5.8-8.1)
[2023-10-06 05:38] LABS: CellaVision Operator ID lab.abc; Platelet Adequacy Comment Platelets Normal; Polychromasia SLIGHT = 2-3 cells HPF (0-2)
[2023-10-07 06:41] LABS: #Eosinphils 0.4 thou/uL (0.0-0.7); #Monocytes 0.4 thou/uL (0.11-0.59); #Neutrophils 5.8 thou/uL (1.40-6.50); %Basophils 0.4 % (0.0-1.0); %Eosinophils 5.8 % (0.0-10.0); %Lymphocytes 9.7 % (21.0-51.0); %Monocytes 5.4 % (0.0-10.0); %Neutrophils 77.5 % (42.0-75.0); Hematocrit 29.9 % (36.0-47.0); Hemoglobin 8.4 g/dL (12.0-16.0); Mean Corpuscular HGB CONC 28.1 g/dL (32.0-36.0); Mean Corpuscular Hemoglobin 24.4 pg (27.0-31.0); Mean Corpuscular Volume 86.9 fl (78.0-98.0); Mean Platelet Volume 9.3 fL (7.4-10.4); Platelet Count 209 10x3/uL (130-400); RBC Distribution Width 17.2 % (11.5-14.5); Red Blood Cell (RBC) Count 3.44 mill/uL (4.20-5.40); White Blood Cell (WBC) Count 7.5 10x3/uL (4.8-10.8)
[2023-10-07 07:02] LABS: Albumin 3.6 g/dL (3.4-4.8)
[2023-10-07 07:15] LABS: ALT (SGPT) 21 U/L (8-55); AST (SGOT) 22 U/L (5-34); Alkaline Phosphatase 117 U/L (40-110); BUN (Urea Nitrogen) 19 mg/dL (9.8-20.1); Bilirubin, Total 0.3 mg/dL (0.2-1.2); Calc. Creatinine Clearance 135 mL/min (70-130); Calcium 8.9 mg/dL (7.8-10.44); Carbon Dioxide 30 mmol/L (23-31); Chloride 98 mmol/L (98-107); Estimated GFR 40; Globulin 3.4 g/dL (2.4-3.5); Glucose 141 mg/dL (80-115); Potassium 4.1 mmol/L (3.5-5.1); Protein, Total 6.9 g/dL (5.8-8.1); Sodium 137 mmol/L (136-145)
[2023-10-07 07:30] LABS: Anion Gap 13 mmol/L (10-20)
[2023-10-07] MEDS: Loratadine 10 MG TAB PO SCH (10:04)
[2023-10-08 06:31] LABS: #Eosinphils 0.5 thou/uL (0.0-0.7); #Monocytes 0.5 thou/uL (0.11-0.59); #Neutrophils 6.4 thou/uL (1.40-6.50); %Basophils 0.5 % (0.0-1.0); %Eosinophils 5.6 % (0.0-10.0); %Monocytes 5.9 % (0.0-10.0); %Neutrophils 76.2 % (42.0-75.0); Hematocrit 30.7 % (36.0-47.0); Hemoglobin 8.7 g/dL (12.0-16.0); Mean Corpuscular HGB CONC 28.3 g/dL (32.0-36.0); Mean Corpuscular Hemoglobin 24.9 pg (27.0-31.0); Mean Corpuscular Volume 87.7 fl (78.0-98.0); Platelet Count 221 10x3/uL (130-400); RBC Distribution Width 17.3 % (11.5-14.5); White Blood Cell (WBC) Count 8.4 10x3/uL (4.8-10.8)
[2023-10-08 06:42] LABS: ALT (SGPT) 21 U/L (8-55); AST (SGOT) 32 U/L (5-34); Albumin 3.8 g/dL (3.4-4.8); Alkaline Phosphatase 129 U/L (40-110); Anion Gap 17 mmol/L (10-20); BUN (Urea Nitrogen) 23 mg/dL (9.8-20.1); Bilirubin, Total 0.3 mg/dL (0.2-1.2); Calc. Creatinine Clearance 121 mL/min (70-130); Calcium 9.1 mg/dL (7.8-10.44); Carbon Dioxide 24 mmol/L (23-31); Chloride 100 mmol/L (98-107); Estimated GFR 35; Globulin 3.9 g/dL (2.4-3.5); Glucose 146 mg/dL (80-115); Potassium 4.3 mmol/L (3.5-5.1); Protein, Total 7.7 g/dL (5.8-8.1); Sodium 137 mmol/L (136-145)
[2023-10-08 07:12] LABS: CellaVision Operator ID LAB.KW3; Platelet Adequacy Comment Platelets Normal; RBC Morphology Within Normal Limits
[2023-10-08] MEDS: Furosemide 40 MG TAB PO SCH (08:41)
[2023-10-08] MEDS: Benzonatate 100 MG CAP PO SCH (14:20)
[2023-10-09 05:21] LABS: #Eosinphils 0.5 thou/uL (0.0-0.7); #Monocytes 0.4 thou/uL (0.11-0.59); #Neutrophils 6.2 thou/uL (1.40-6.50); %Basophils 0.5 % (0.0-1.0); %Eosinophils 5.9 % (0.0-10.0); %Lymphocytes 11.5 % (21.0-51.0); %Monocytes 5.3 % (0.0-10.0); %Neutrophils 75.8 % (42.0-75.0); Hematocrit 30.1 % (36.0-47.0); Hemoglobin 8.9 g/dL (12.0-16.0); Mean Corpuscular HGB CONC 29.6 g/dL (32.0-36.0); Mean Corpuscular Hemoglobin 25.4 pg (27.0-31.0); Mean Corpuscular Volume 85.8 fl (78.0-98.0); Mean Platelet Volume 9.3 fL (7.4-10.4); Platelet Count 230 10x3/uL (130-400); RBC Distribution Width 17.3 % (11.5-14.5); Red Blood Cell (RBC) Count 3.51 mill/uL (4.20-5.40); White Blood Cell (WBC) Count 8.2 10x3/uL (4.8-10.8)
[2023-10-09 05:47] LABS: ALT (SGPT) 22 U/L (8-55); AST (SGOT) 23 U/L (5-34); Albumin 3.9 g/dL (3.4-4.8); Alkaline Phosphatase 123 U/L (40-110); Anion Gap 12 mmol/L (10-20); BUN (Urea Nitrogen) 24 mg/dL (9.8-20.1); Bilirubin, Total 0.3 mg/dL (0.2-1.2); Calc. Creatinine Clearance 121 mL/min (70-130); Carbon Dioxide 29 mmol/L (23-31); Chloride 98 mmol/L (98-107); Estimated GFR 35; Globulin 3.7 g/dL (2.4-3.5); Glucose 147 mg/dL (80-115); Potassium 4.1 mmol/L (3.5-5.1); Protein, Total 7.6 g/dL (5.8-8.1); Sodium 135 mmol/L (136-145)
[2023-10-09] MEDS: Ipratropium/Albuterol 3 ML NEB NEB SCH (09:56)
[2023-10-10 06:10] LABS: #Eosinphils 0.5 thou/uL (0.0-0.7); #Monocytes 0.5 thou/uL (0.11-0.59); #Neutrophils 5.8 thou/uL (1.40-6.50); %Basophils 0.4 % (0.0-1.0); %Eosinophils 6.3 % (0.0-10.0); %Lymphocytes 11.9 % (21.0-51.0); %Monocytes 5.8 % (0.0-10.0); %Neutrophils 74.7 % (42.0-75.0); Hematocrit 31.4 % (36.0-47.0); Hemoglobin 8.7 g/dL (12.0-16.0); Mean Corpuscular HGB CONC 27.7 g/dL (32.0-36.0); Mean Corpuscular Hemoglobin 24.2 pg (27.0-31.0); Mean Corpuscular Volume 87.5 fl (78.0-98.0); Mean Platelet Volume 9.6 fL (7.4-10.4); Platelet Count 226 10x3/uL (130-400); RBC Distribution Width 17.6 % (11.5-14.5); Red Blood Cell (RBC) Count 3.59 mill/uL (4.20-5.40); White Blood Cell (WBC) Count 7.7 10x3/uL (4.8-10.8)
[2023-10-10 06:45] LABS: ALT (SGPT) 24 U/L (8-55); AST (SGOT) 24 U/L (5-34); Albumin 3.8 g/dL (3.4-4.8); Alkaline Phosphatase 122 U/L (40-110); Anion Gap 10 mmol/L (10-20); BUN (Urea Nitrogen) 22 mg/dL (9.8-20.1); Bilirubin, Total 0.4 mg/dL (0.2-1.2); Calc. Creatinine Clearance 140 mL/min (70-130); Calcium 9.2 mg/dL (7.8-10.44); Carbon Dioxide 30 mmol/L (23-31); Chloride 101 mmol/L (98-107); Estimated GFR 42; Globulin 3.7 g/dL (2.4-3.5); Glucose 141 mg/dL (80-115); Potassium 4.4 mmol/L (3.5-5.1); Protein, Total 7.5 g/dL (5.8-8.1); Sodium 137 mmol/L (136-145)
[2023-10-10] MEDS: Furosemide 20 MG TAB PO SCH ×2 (10:56→11:00)
[2023-10-11] MEDS: guaiFENesin ER 600 MG TAB PO SCH (21:09)
[2023-10-12 06:20] LABS: #Eosinphils 0.5 thou/uL (0.0-0.7); #Monocytes 0.4 thou/uL (0.11-0.59); #Neutrophils 5.9 thou/uL (1.40-6.50); %Basophils 0.5 % (0.0-1.0); %Eosinophils 6.4 % (0.0-10.0); %Lymphocytes 7.7 % (21.0-51.0); %Monocytes 5.4 % (0.0-10.0); %Neutrophils 79.1 % (42.0-75.0); Hematocrit 30.6 % (36.0-47.0); Hemoglobin 8.7 g/dL (12.0-16.0); Mean Corpuscular HGB CONC 28.4 g/dL (32.0-36.0); Mean Corpuscular Hemoglobin 24.9 pg (27.0-31.0); Mean Corpuscular Volume 87.7 fl (78.0-98.0); Mean Platelet Volume 9.6 fL (7.4-10.4); Platelet Count 219 10x3/uL (130-400); RBC Distribution Width 17.3 % (11.5-14.5); Red Blood Cell (RBC) Count 3.49 mill/uL (4.20-5.40); White Blood Cell (WBC) Count 7.4 10x3/uL (4.8-10.8)
[2023-10-12 07:09] LABS: ALT (SGPT) 26 U/L (8-55); AST (SGOT) 27 U/L (5-34); Albumin 3.7 g/dL (3.4-4.8); Alkaline Phosphatase 116 U/L (40-110); Anion Gap 13 mmol/L (10-20); BUN (Urea Nitrogen) 20 mg/dL (9.8-20.1); Bilirubin, Total 0.4 mg/dL (0.2-1.2); Calc. Creatinine Clearance 157 mL/min (70-130); Calcium 9.1 mg/dL (7.8-10.44); Carbon Dioxide 24 mmol/L (23-31); Chloride 102 mmol/L (98-107); Estimated GFR 48; Globulin 3.7 g/dL (2.4-3.5); Glucose 149 mg/dL (80-115); Potassium 4.7 mmol/L (3.5-5.1); Protein, Total 7.4 g/dL (5.8-8.1); Sodium 134 mmol/L (136-145)
[2023-10-12] MEDS ORDERED: Benzocaine/Menthol 1 LOZ LOZ PO PRN (07:26)
[2023-10-12] MEDS ORDERED: Furosemide 20 MG TAB PO SCH (07:27)
[2023-10-12] MEDS: Furosemide 20 MG TAB PO SCH (09:37)
[2023-10-13 05:29] LABS: ALT (SGPT) 23 U/L (8-55); AST (SGOT) 22 U/L (5-34); Albumin 3.8 g/dL (3.4-4.8); Alkaline Phosphatase 128 U/L (40-110); Anion Gap 13 mmol/L (10-20); BUN (Urea Nitrogen) 23 mg/dL (9.8-20.1); Bilirubin, Total 0.4 mg/dL (0.2-1.2); Calc. Creatinine Clearance 143 mL/min (70-130); Calcium 9.1 mg/dL (7.8-10.44); Carbon Dioxide 25 mmol/L (23-31); Chloride 99 mmol/L (98-107); Estimated GFR 43; Globulin 3.5 g/dL (2.4-3.5); Glucose 145 mg/dL (80-115); Potassium 4.9 mmol/L (3.5-5.1); Protein, Total 7.3 g/dL (5.8-8.1); Sodium 132 mmol/L (136-145)
[2023-10-13 11:06] LABS: Troponin I Less than 0.010 ng/mL (< 0.028)
[2023-10-13 11:51] LABS: Anion Gap 13 mmol/L (10-20); BUN (Urea Nitrogen) 21 mg/dL (9.8-20.1); Calc. Creatinine Clearance 139 mL/min (70-130); Calcium 9.3 mg/dL (7.8-10.44); Carbon Dioxide 25 mmol/L (23-31); Chloride 101 mmol/L (98-107); Estimated GFR 42; Glucose 151 mg/dL (80-115); Sodium 134 mmol/L (136-145)
[2023-10-14 06:33] LABS: #Basophils 0.1 thou/uL (0.0-0.2); #Eosinphils 0.5 thou/uL (0.0-0.7); #Monocytes 0.4 thou/uL (0.11-0.59); #Neutrophils 5.5 thou/uL (1.40-6.50); %Basophils 0.7 % (0.0-1.0); %Eosinophils 7.1 % (0.0-10.0); %Lymphocytes 12.2 % (21.0-51.0); %Monocytes 5.7 % (0.0-10.0); %Neutrophils 73.5 % (42.0-75.0); Hematocrit 36.1 % (36.0-47.0); Hemoglobin 10.2 g/dL (12.0-16.0); Mean Corpuscular HGB CONC 28.3 g/dL (32.0-36.0); Mean Corpuscular Hemoglobin 24.8 pg (27.0-31.0); Mean Corpuscular Volume 87.6 fl (78.0-98.0); Mean Platelet Volume 9.2 fL (7.4-10.4); Platelet Count 286 10x3/uL (130-400); RBC Distribution Width 17.5 % (11.5-14.5); Red Blood Cell (RBC) Count 4.12 mill/uL (4.20-5.40); White Blood Cell (WBC) Count 7.5 10x3/uL (4.8-10.8)
[2023-10-14 07:01] LABS: ALT (SGPT) 26 U/L (8-55); AST (SGOT) 31 U/L (5-34); Alkaline Phosphatase 136 U/L (40-110); Anion Gap 15 mmol/L (10-20); BUN (Urea Nitrogen) 26 mg/dL (9.8-20.1); Bilirubin, Total 0.2 mg/dL (0.2-1.2); Calc. Creatinine Clearance 117 mL/min (70-130); Calcium 9.1 mg/dL (7.8-10.44); Carbon Dioxide 28 mmol/L (23-31); Chloride 98 mmol/L (98-107); Estimated GFR 34; Globulin 4.4 g/dL (2.4-3.5); Glucose 141 mg/dL (80-115); Potassium 4.8 mmol/L (3.5-5.1); Protein, Total 8.4 g/dL (5.8-8.1); Sodium 136 mmol/L (136-145)
[2023-10-15] MEDS ORDERED: Ondansetron PF 4 MG/2 ML Vial IVP PRN (03:00)
[2023-10-15] MEDS: Ondansetron ODT 8 MG TAB SL PRN (03:06)
[2023-10-15 06:55] LABS: ALT (SGPT) 18 U/L (8-55); AST (SGOT) 19 U/L (5-34); Albumin 3.9 g/dL (3.4-4.8); Alkaline Phosphatase 129 U/L (40-110); Anion Gap 14 mmol/L (10-20); BUN (Urea Nitrogen) 31 mg/dL (9.8-20.1); Bilirubin, Total 0.3 mg/dL (0.2-1.2); Calc. Creatinine Clearance 94 mL/min (70-130); Calcium 9.4 mg/dL (7.8-10.44); Carbon Dioxide 24 mmol/L (23-31); Chloride 102 mmol/L (98-107); Estimated GFR 26; Globulin 3.7 g/dL (2.4-3.5); Glucose 139 mg/dL (80-115); Potassium 4.6 mmol/L (3.5-5.1); Protein, Total 7.6 g/dL (5.8-8.1); Sodium 135 mmol/L (136-145)
[2023-10-15] MEDS: Furosemide 40 MG TAB PO SCH (08:43)
[2023-10-15] MEDS: Lactated Ringer's 500 ML IV SCH (15:56)
[2023-10-15] MEDS: Lactated Ringer's 1,000 ML IV SCH (18:43)
[2023-10-16 07:20] LABS: #Eosinphils 0.5 thou/uL (0.0-0.7); #Monocytes 0.4 thou/uL (0.11-0.59); #Neutrophils 6.4 thou/uL (1.40-6.50); %Basophils 0.5 % (0.0-1.0); %Eosinophils 5.9 % (0.0-10.0); %Lymphocytes 7.3 % (21.0-51.0); %Monocytes 5.4 % (0.0-10.0); %Neutrophils 80.1 % (42.0-75.0); Hematocrit 31.8 % (36.0-47.0); Mean Corpuscular HGB CONC 28.3 g/dL (32.0-36.0); Mean Corpuscular Hemoglobin 25.1 pg (27.0-31.0); Mean Corpuscular Volume 88.8 fl (78.0-98.0); Mean Platelet Volume 9.9 fL (7.4-10.4); Platelet Count 258 10x3/uL (130-400); RBC Distribution Width 17.6 % (11.5-14.5); Red Blood Cell (RBC) Count 3.58 mill/uL (4.20-5.40)
[2023-10-16 07:48] LABS: ALT (SGPT) 18 U/L (8-55); AST (SGOT) 19 U/L (5-34); Albumin 3.9 g/dL (3.4-4.8); Alkaline Phosphatase 128 U/L (40-110); Anion Gap 11 mmol/L (10-20); BUN (Urea Nitrogen) 36 mg/dL (9.8-20.1); Bilirubin, Total 0.3 mg/dL (0.2-1.2); Calc. Creatinine Clearance 96 mL/min (70-130); Calcium 9.2 mg/dL (7.8-10.44); Carbon Dioxide 26 mmol/L (23-31); Chloride 102 mmol/L (98-107); Estimated GFR 26; Globulin 3.7 g/dL (2.4-3.5); Glucose 134 mg/dL (80-115); Protein, Total 7.6 g/dL (5.8-8.1); Sodium 134 mmol/L (136-145)
[2023-10-16 08:36] LABS: CellaVision Operator ID LAB.KW3; Platelet Adequacy Comment Platelets Normal; RBC Morphology Within Normal Limits
[2023-10-16 13:04] VITALS: BMI 82.3
[2023-10-16 19:36] VITALS: BP 104/55; TEMP 97.5
== END 2023-10-16 22:05 | DRG 291 ==
LOC: ERS 23:51 → ERHOLD 09-30 03:15 → 2NO 09-30 03:25 → OBSVTOIN 09-30 04:26 → 2NO 09-30 09:21 → T4-B 10-09 19:08
PROVIDERS: ADMIT Family Medicine; ATTEND Family Medicine
PROC: 5A09357 Assistance with Respiratory Ventilation, Less than 24 Consecutive Hours, Continuous Positive Airway Pressure (ICD-10-PCS; principal; 2023-10-01)
DX: I13.0 Hypertensive heart and chronic kidney disease with heart failure and stage 1 through stage 4 chronic kidney disease, or unspecified chronic kidney disease (principal); I50.33 Acute on chronic diastolic (congestive) heart failure; J96.01 Acute respiratory failure with hypoxia; N39.0 Urinary tract infection, site not specified; Z68.45 Body mass index [BMI] 70 or greater, adult; N17.9 Acute kidney failure, unspecified; L30.4 Erythema intertrigo; J44.9 Chronic obstructive pulmonary disease, unspecified; D63.1 Anemia in chronic kidney disease; G47.33 Obstructive sleep apnea (adult) (pediatric); F41.9 Anxiety disorder, unspecified; G89.4 Chronic pain syndrome; Z79.899 Other long term (current) drug therapy; Z79.01 Long term (current) use of anticoagulants; K42.9 Umbilical hernia without obstruction or gangrene; Z90.710 Acquired absence of both cervix and uterus; Z90.49 Acquired absence of other specified parts of digestive tract; F32.A Depression, unspecified; N18.2 Chronic kidney disease, stage 2 (mild); E66.01 Morbid (severe) obesity due to excess calories; K21.9 Gastro-esophageal reflux disease without esophagitis; E78.5 Hyperlipidemia, unspecified; Z11.52 Encounter for screening for COVID-19
CPT/HCPCS: 36415; 51702; 71045; 71046; 80053; 81001; 83690; 83735; 83880; 84484; 85025; 87086; 93005; 93010; 93306; 93970; 94640; 96365; 97139; J0360; J0696; J1940; J3490; J7120; J7620; Q0162